=== PATIENT | male | born 1985 | race Hispanic/Latino ===

== ENCOUNTER 2017-12-29 19:32 | Emergency (ER) | payer BC ==
[2017-12-29] MEDS ORDERED: LIDOCAINE 1% 20 ML MDV ONE (20:26)
--- NOTE | 2017-12-29 21:08 | EDPHYS ---
Physician Documentation [facility] Name: Joss Candelario Jr Age: 32 yrs Sex: Male : 1985 Arrival Date: 12/29/2017 Time: 19:35 Bed 9 Private MD: ED Physician Arnold Celestin HPI: 12/29 20:34 This 32 yrs old Male presents to ER via Ambulatory with complaints of Abscess. kb 20:34 The patient presents with an abscess of the gluteal cleft. Description: erythematous, kb fluctuant, swollen. Onset: The symptoms/episode began/occurred last week. Possible cause(s): unknown. Associated signs and symptoms: Pertinent positives: erythema, swelling, Pertinent negatives: discharge, drainage, foreign body sensation, fever, headache, nausea, shortness of breath, vomiting. Modifying factors: the symptoms are alleviated by nothing, the symptoms are aggravated by movement, walking, pressure, sitting, squeezing the lesion and expressing the contents, touching. Severity of symptoms: At their worst the symptoms were moderate, in the emergency department the symptoms are unchanged. The patient has not experienced similar symptoms in the past. The patient has not recently seen a physician. Historical: - Allergies: 19:44 No Known Allergies; ak1 - Home Meds: 19:44 Novolog Sub-Q [Active]; ak1 - PMHx: 19:44 Diabetes - IDDM; ak1 - PSHx: 19:44 None; ak1 - Immunization history:: Adult Immunizations up to date. - Social history:: Smoking status: Patient uses tobacco products, denies chronic smoking, but will smoke occasionally. ROS: 20:33 Constitutional: Negative for fever, chills, and weight loss, Cardiovascular: Negative kb for chest pain, palpitations, and edema, Respiratory: Negative for shortness of breath, cough, wheezing, and pleuritic chest pain, Abdomen/GI: Negative for abdominal pain, nausea, vomiting, diarrhea, and constipation, MS/Extremity: Negative for injury and deformity, Neuro: Negative for headache, weakness, numbness, tingling, and seizure. 20:33 Skin: Positive for abscess, of the gluteal cleft. Exam: 20:33 Constitutional: This is a well developed, well nourished patient who is awake, alert, kb and in no acute distress. Head/Face: Normocephalic, atraumatic. Chest/axilla: Normal chest wall appearance and motion. Nontender with no deformity. No lesions are appreciated. Cardiovascular: Regular rate and rhythm with a normal S1 and S2. No gallops, murmurs, or rubs. Normal PMI, no JVD. No pulse deficits. Respiratory: Lungs have equal breath sounds bilaterally, clear to auscultation and percussion. No rales, rhonchi or wheezes noted. No increased work of breathing, no retractions or nasal flaring. Abdomen/GI: Soft, non-tender, with normal bowel sounds. No distension or tympany. No guarding or rebound. No evidence of tenderness throughout. MS/ Extremity: Pulses equal, no cyanosis. Neurovascular intact. Full, normal range of motion. Neuro: Awake and alert, GCS 15, oriented to person, place, time, and situation. Cranial nerves II-XII grossly intact. Motor strength 5/5 in all extremities. Sensory grossly intact. Cerebellar exam normal. Normal gait. 20:33 Skin: abscess, that is moderate sized, of the gluteal cleft, with fluctuance, that is mild, that is moderate. Vital Signs: 19:44 BP 125 / 80; Pulse 120; Resp 18; Temp 98.6(TE); Pulse Ox 100% on R/A; Weight 72.57 kg ak1 (R); Height 5 ft. 10 in. (177.80 cm) (R); Pain 10/10; 21:27 BP 124 / 78; Pulse 90; Resp 16; Pulse Ox 100% on R/A; Pain 6/10; ed1 19:44 Body Mass Index 22.96 (72.57 kg, 177.80 cm) ak1 Procedures: 20:52 I \T\ D: Incision and drainage was performed for an abscess of the left pilonidal cyst kb Prepped with Betadine, Anesthetized with 4 ml's 1% Lidocaine. Incised with #11 blade. Drained large amount purulent fluid. Loculations removed. Cultures obtained. Packed with iodoform gauze, Dressing: sterile 4x4 gauze, the patient tolerated the procedure well. MDM: 20:18 Patient medically screened. kb 20:33 Data reviewed: vital signs, nurses notes. Data interpreted: Pulse oximetry: on room air kb is 100 %. Interpretation: normal. 21:06 Counseling: I had a detailed discussion with the patient and/or guardian regarding: the kb historical points, exam findings, and any diagnostic results supporting the discharge/admit diagnosis, the need for outpatient follow up, a general surgeon, to return to the emergency department if symptoms worsen or persist or if there are any questions or concerns that arise at home. 12/29 21:08 Order name: Wound Culture kb 12/29 21:07 Order name: I\T\D Setup; Complete Time: : kb Administered Medications: 21: Drug: Lidocaine (2 %) 1 vials Volume: 5 ml; Route: Infiltration; ed1 21: Drug: Clindamycin 300 mg Route: PO; ed1 21:28 Follow up: Response: Medication administered at discharge. ed1 : Drug: Doxycycline 100 mg Route: PO; ed1 :28 Follow up: Response: Medication administered at discharge. ed1 Disposition: 12/30 00:56 Co-signature as Attending Physician, Arnold Celestin MD. rn Disposition: 12/29/17 21:08 Discharged to Home. Impression: Pilonidal cyst with abscess. - Condition is Stable. - Discharge Instructions: Pilonidal Cyst, Incision and Drainage of a Pilonidal Cyst. - Prescriptions for Clindamycin HCl 300 mg Oral Capsule - take 1 capsule by ORAL route every 6 hours for 10 days; 40 capsule. Doxycycline Hyclate 100 mg Oral Tablet - take 1 tablet by ORAL route every 12 hours; 20 tablet. Tylenol- Codeine #3 300-30 mg Oral Tablet - take 1 tablet by ORAL route every 6 hours As needed; 15 tablet. - Medication Reconciliation Form, Thank You Letter, Antibiotic Education, Prescription Opioid Use form. - Work release form (12/29/17 21:37). ed1 - Follow up: Emergency Department; When: As needed; Reason: Worsening of condition. Follow up: Private Physician; When: 2 - 3 days; Reason: Recheck today's complaints, Continuance of care, Re-evaluation by your physician. Signatures: Dispatcher [employer] EDVT Linda Edwards, STEPHANYC ALY-Arnold Hernandez MD MD rn Ai James, CHAIN PEGGER CHAIN PEGGER ed1 Toma Gutierrez, RN RN ak1 Corrections: (The following items were deleted from the chart) 12/29 21:28 21:08 12/29/2017 21:08 Discharged to Home. Impression: Pilonidal cyst with abscess. ed1 Condition is Stable. Forms are Medication Reconciliation Form, Thank You Letter, Antibiotic Education, Prescription Opioid Use. Follow up: Emergency Department; When: As needed; Reason: Worsening of condition. Follow up: Private Physician; When: 2 - 3 days; Reason: Recheck today's complaints, Continuance of care, Re-evaluation by your physician. kb
--- NOTE | 2017-12-29 21:08 | ER ---
Nurse's Notes [facility] Name: Joss Candelario Jr Age: 32 yrs Sex: Male : 1985 Arrival Date: 12/29/2017 Time: 19:35 Bed 9 Private MD: Diagnosis: Pilonidal cyst with abscess Presentation: 12/29 19:43 Presenting complaint: Patient states: abscess to buttocks X3 days. pt denies drainage. ak1 Transition of care: patient was not received from another setting of care. Onset of symptoms was December 25, 2017. Initial Sepsis Screen: Does the patient meet any 2 criteria? No. Patient's initial sepsis screen is negative. Does the patient have a suspected source of infection? No. Patient's initial sepsis screen is negative. Care prior to arrival: None. 19:43 Method Of Arrival: Ambulatory ak1 19:43 Acuity: JENNY 4 ak1 Triage Assessment: 19:44 General: Appears uncomfortable, Behavior is calm, cooperative. Pain: Complains of pain ak1 in coccyx and gluteal cleft. EENT: No signs and/or symptoms were reported regarding the EENT system. Neuro: No deficits noted. Cardiovascular: No deficits noted. Respiratory: No deficits noted. GI: No signs and/or symptoms were reported involving the gastrointestinal system. : No signs and/or symptoms were reported regarding the genitourinary system. Derm: Abscess located on coccyx and gluteal cleft. Musculoskeletal: No signs and/or symptoms reported regarding the musculoskeletal system. Historical: - Allergies: 19:44 No Known Allergies; ak1 - Home Meds: 19:44 Novolog Sub-Q [Active]; ak1 - PMHx: 19:44 Diabetes - IDDM; ak1 - PSHx: 19:44 None; ak1 - Immunization history:: Adult Immunizations up to date. - Social history:: Smoking status: Patient uses tobacco products, denies chronic smoking, but will smoke occasionally. Screenin:45 Abuse screen: Denies threats or abuse. Denies injuries from another. Nutritional ak1 screening: No deficits noted. Tuberculosis screening: No symptoms or risk factors identified. Fall Risk None identified. Assessment: 20:16 General: Appears uncomfortable, Behavior is calm, cooperative. Pain: Complains of pain ed1 in gluteal cleft Pain does not radiate. Pain currently is 10 out of 10 on a pain scale. Quality of pain is described as throbbing, Pain began 1 day ago. Is continuous. Neuro: Level of Consciousness is awake, alert, obeys commands, Oriented to person, place, time, situation. Cardiovascular: Denies chest pain, Heart tones S1 S2 present. Respiratory: Airway is patent Respiratory effort is even, unlabored, Respiratory pattern is regular, symmetrical, Breath sounds are clear bilaterally. GI: No signs and/or symptoms were reported involving the gastrointestinal system. : No signs and/or symptoms were reported regarding the genitourinary system. EENT: No signs and/or symptoms were reported regarding the EENT system. Derm: Abscess located on gluteal cleft is nickel sized, is red, is raised. Musculoskeletal: Circulation, motion, and sensation intact. 20:20 Reassessment: Patient appears in no apparent distress at this time. No changes from aa1 previously documented assessment. 21:27 Reassessment: Patient appears in no apparent distress at this time. No changes from ed1 previously documented assessment. Patient and/or family updated on plan of care and expected duration. Pain level reassessed. Patient is alert, oriented x 3, equal unlabored respirations, skin warm/dry/pink. Patient states symptoms have not improved. Vital Signs: 19:44 BP 125 / 80; Pulse 120; Resp 18; Temp 98.6(TE); Pulse Ox 100% on R/A; Weight 72.57 kg ak1 (R); Height 5 ft. 10 in. (177.80 cm) (R); Pain 10/10; 21:27 BP 124 / 78; Pulse 90; Resp 16; Pulse Ox 100% on R/A; Pain 6/10; ed1 19:44 Body Mass Index 22.96 (72.57 kg, 177.80 cm) ak1 ED Course: 19:35 Patient arrived in ED. am2 19:44 Triage completed. ak1 19:44 Arm band placed on Patient placed in waiting room, Patient notified of wait time. ak1 20:16 Patient has correct armband on for positive identification. Placed in gown. Bed in low ed1 position. Call light in reach. 20:17 Linda Edwards FNP-C is [facility]. kb 20:17 Arnold Celestin MD is Attending Physician. kb 20:50 Ai James LVN is Primary Nurse. ed1 20:53 Assist provider with I \T\ D: of an abscess on Set up I\T\D tray. Performed by Linda ed 1 Jerry CRANE Wound packed. iodoform gauze, Dressing with 4X4s, Patient tolerated poorly. 21:27 Patient did not have IV access during this emergency room visit. ed1 Administered Medications: 21:09 Drug: Lidocaine (2 %) 1 vials Volume: 5 ml; Route: Infiltration; ed1 : Drug: Clindamycin 300 mg Route: PO; ed1 21:28 Follow up: Response: Medication administered at discharge. ed1 21: Drug: Doxycycline 100 mg Route: PO; ed1 21:28 Follow up: Response: Medication administered at discharge. ed1 Outcome: 21:08 Discharge ordered by . william 21:27 Discharged to home ambulatory. ed1 21: Condition: good 21:27 Discharge instructions given to patient, Instructed on discharge instructions, follow up and referral plans. medication usage, wound care, Demonstrated understanding of instructions, follow-up care, medications, wound care, Prescriptions given X 1. 21:28 Patient left the ED. ed1 Signatures: Linda Edwards, ROSA MARIA LU-Kelley Lainez, RN RN aa1 Ai James LVN LVN ed1 Toma Gutierrez RN RN ak1 Martha Fatima am2
[2017-12-29] MEDS ORDERED: DOXYCYCLINE 100 MG CAP PO ONE (21:11)
[2017-12-29] MEDS ORDERED: CLINDAMYCIN HCL 150 MG CAP ONE (21:11)
== END 2017-12-29 21:28 | disposition home or self-care (01) ==
LOC: ER 19:32
PROC: 0H98XZZ Drainage of Buttock Skin, External Approach (ICD-10-PCS; principal; 2017-12-29)
DX: L05.01 Pilonidal cyst with abscess (principal); E11.9 Type 2 diabetes mellitus without complications; Z79.4 Long term (current) use of insulin; Z72.0 Tobacco use
CPT/HCPCS: 87070; 87205; 99283